=== PATIENT | female | born 1975 | race Caucasian/White ===

== ENCOUNTER 2017-07-12 08:03 | Emergency (ER) | payer BC ==
[2017-07-12 08:40] VITALS: BP 141/88
--- NOTE | 2017-07-12 09:13 | UC ---
Abdominal Pain Female HPI - HPI Summary HPI Summary: pt with recent h/o c. diff x2 presents with - History of Current Complaint Chief Complaint: UCGI Stated Complaint: DIAHRREA Time Seen by Provider: 07/12/17 08:39 Hx Last Menstrual Period: pt states taking a med that prevents menses Allergies/Adverse Reactions: Allergies Allergy/AdvReac Type Severity Reaction Status Date / Time Meloxicam [From Mobic] Allergy Severe Swelling Verified 08/29/16 08:22 Of Face,Lips,& Throat Clarithromycin [From Biaxin] Allergy Intermediate Rash Verified 08/29/16 08:22 Prednisone AdvReac Intermediate Agitation Verified 07/12/17 08:40 Home Medications: Home Medications Leuflinomide 10 mg PO DAILY 07/12/17 [History] Loperamide CAP* [Imodium CAP*] 2 mg PO Q4H PRN 07/12/17 [History Confirmed 07/12] PMH/Surg Hx/FS Hx/Imm Hx - Surgical History Surgical History: None - Social History Alcohol Use: Occasionally Substance Use Type: None Smoking Status (MU): Heavy Every Day Tobacco Smoker Type: Cigarettes Amount Used/How Often: 1/2-1 ppd Length of Time of Smoking/Using Tobacco: since age 19 Have You Smoked in the Last Year: Yes Household Exposure Type: Cigarettes Physical Exam Vital Signs: Initial Vital Signs Temp 97.3 F 07/12/17 08:28 Pulse 89 07/12/17 08:28 Resp 16 07/12/17 08:28 BP 141/88 07/12/17 08:28 Pulse Ox 98 07/12/17 08:28 Discharge - Discharge Plan Condition: Stable Disposition: HOME Patient Education Materials: Acute Abdominal Pain (ED) Referrals: No Primary Care Phys,NOPCP [Medical Doctor] - Additional Instructions: Your history and physical exam is suspicious for appendicitis. Although your symptoms may be a result of another round of c. diff, we must rule out appendicitis as this can be a life threatening condition. We recommend that you go to the ED immediately for complete evaluation and treatment. Do not eat or drink anything until you have been evaluated.
== END 2017-07-12 09:24 | disposition home or self-care (01) ==
LOC: UCCORT 08:03
DX: R19.7 Diarrhea, unspecified (principal); R10.9 Unspecified abdominal pain; F17.210 Nicotine dependence, cigarettes, uncomplicated; Z88.1 Allergy status to other antibiotic agents; Z88.8 Allergy status to other drugs, medicaments and biological substances
CPT/HCPCS: 99212; G0463

== ENCOUNTER 2018-09-23 12:36 | Emergency (ER) | payer BC ==
[2018-09-23 12:52] VITALS: BP 148/90
--- NOTE | 2018-09-23 12:59 | UC ---
Respiratory Complaint HPI - HPI Summary HPI Summary: Cough for 2 wks and today her back 'went out' and has back pain w/ cough. + smoker. has not tried any rx but has been using otc meds which are not helping. - History of Current Complaint Chief Complaint: UCRespiratory Stated Complaint: COUGH,BACK PAIN Time Seen by Provider: 09/23/18 12:40 Hx Obtained From: Patient Hx Last Menstrual Period: iud Pain Intensity: 8 Pain Scale Used: 0-10 Numeric Character: Cough: Nonproductive Aggravating Factors: Deep Breaths Alleviating Factors: Nothing - Allergies/Home Medications Allergies/Adverse Reactions: Allergies Allergy/AdvReac Type Severity Reaction Status Date / Time clarithromycin [From Biaxin] Allergy Hives Verified 09/23/18 12:54 meloxicam [From Mobic] Allergy Swelling Verified 09/23/18 12:54 prednisone Allergy Hives Verified 09/23/18 12:54 Home Medications: Home Medications Amlodipine Besylate [Amlodipine 2.5 mg tab] 1 tab PO DAILY 09/23/18 [History Confirmed 09/23/18] Tofacitinib Citrate [Xeljanz Xr] 11 mg PO DAILY 09/23/18 [History Confirmed 03/04] PMH/Surg Hx/FS Hx/Imm Hx Previously Healthy: Yes - Surgical History Surgical History: None - Social History Alcohol Use: Occasionally Substance Use Type: None Smoking Status (MU): Heavy Every Day Tobacco Smoker Type: Cigarettes Amount Used/How Often: 1/2-1 ppd Length of Time of Smoking/Using Tobacco: since age 19 Have You Smoked in the Last Year: Yes Household Exposure Type: Cigarettes Review of Systems All Other Systems Reviewed And Are Negative: Yes Constitutional: Negative: Fever, Chills, Fatigue Skin: Negative: Rash ENT: Negative: Sore Throat, Sinus Congestion Respiratory: Positive: Cough - nonproductive x 2 wk Cardiovascular: Positive: Negative Musculoskeletal: Positive: Arthralgia - back pain Neurological: Negative: Headache Physical Exam Triage Information Reviewed: Yes Appearance: Well-Appearing Vital Signs: Initial Vital Signs Temp 99.2 F 09/23/18 12:49 Pulse 73 09/23/18 12:49 Resp 17 09/23/18 12:49 BP 148/90 09/23/18 12:49 Pulse Ox 100 09/23/18 12:49 Vital Signs Reviewed: Yes Neck: Positive: Supple, Nontender, No Lymphadenopathy Respiratory Exam: Normal Respiratory: Negative: Chest non-tender Cardiovascular Exam: Normal Abdomen Description: Negative: CVA Tenderness (R), CVA Tenderness (L) Musculoskeletal: Positive: Other: - nontender spine Neurological: Positive: Alert UC Diagnostic Evaluation - Laboratory O2 Sat by Pulse Oximetry: 100 - Radiology Radiology Interpretation Completed By: Radiologist Summary of Radiographic Findings: IMPRESSION: No active cardiopulmonary disease is noted. Respiratory Course/Dx - Course Course Of Treatment: Nonproductive cough x 2 wks w/ sudden back pain today. Pt is a smoker. Lungs clear, afebrile . Vitals good. XRAY shows:no abnormalities. we called pt. after she left and gave her results.otherwise will tx her cough sy;mptomatically. - Differential Dx/Diagnosis Differential Diagnosis/HQI/PQRI: Asthma, Bronchitis, Sinusitis Provider Diagnosis: URI, acute, Muscle spasm Discharge - Sign-Out/Discharge Documenting (check all that apply): Patient Departure All imaging exams completed and their final reports reviewed: Yes - Discharge Plan Condition: Good Disposition: HOME Prescriptions: Albuterol HFA INHALER* [Ventolin HFA Inhaler*] 2 puff INH Q4H PRN #1 mdi PRN Reason: Cough Benzonatate CAP* [Tessalon 100 MG CAP*] 100 mg PO TID 3 Days #9 cap Cyclobenzaprine (NF) [Cyclobenzaprine 5 MG (NF)] 5 mg PO TID PRN 3 Days #9 tab PRN Reason: Spasms Patient Education Materials: Muscle Spasm (ED) Referrals: Dena Polanco MD [Primary Care Provider] - Additional Instructions: YOu will need to follow up with your pcp to rule out COPD. - Billing Disposition and Condition Condition: GOOD Disposition: Home
== END 2018-09-23 14:31 | disposition home or self-care (01) ==
LOC: UCEAST 12:36
DX: J06.9 Acute upper respiratory infection, unspecified (principal); M62.838 Other muscle spasm; M54.9 Dorsalgia, unspecified; F17.210 Nicotine dependence, cigarettes, uncomplicated; Z88.1 Allergy status to other antibiotic agents; Z88.8 Allergy status to other drugs, medicaments and biological substances
CPT/HCPCS: 71046; 99212; G0463